=== PATIENT | male | born 1990 | race Caucasian/White ===

== ENCOUNTER → 2017-11-29 | Outpatient (CLI) | payer OTHER ==
[~2017-11-29] MED LIST: Benztropine Mesy1 MG PO; FISH1000 PO; FLUO10 PO; Inderal 20 mg T20 MG PO; L-THEANINE PO; MULVITMIND PO; OLAN10A MM; QVAR REDIHALE10.6 G1 PO; SULTRIDS PO
== END ==
LOC: LAB SHORT 12:26
DX: J03.90 Acute tonsillitis, unspecified (principal)
CPT/HCPCS: 87070

== ENCOUNTER 2018-02-18 12:59 | Emergency (ER) | payer OTHER ==
[~2018-02-18] VITALS: Ht 182.9 cm; Wt 122.0 kg
[~2018-02-18 12:59] MED LIST changes: -Benztropine Mesy1 MG PO; -FLUO10 PO; -QVAR REDIHALE10.6 G1 PO
[2018-02-18] MEDS ORDERED: Benztropine Mesy1 MG PO (14:15)
[2018-02-18] MEDS ORDERED: FLUO10 PO (14:15)
[2018-02-18] MEDS ORDERED: QVAR REDIHALE10.6 G1 PO (14:15)
== END 2018-02-18 14:57 | disposition home or self-care (01) ==
LOC: ER 12:59
DX: R07.89 Other chest pain (principal); Z88.8 Allergy status to other drugs, medicaments and biological substances; Z79.899 Other long term (current) drug therapy; F20.9 Schizophrenia, unspecified
CPT/HCPCS: 93005; 93010; 99283

== ENCOUNTER 2018-03-13 08:51 | Day surgery (SDC) | payer OTHER ==
[~2018-03-13 08:51] MED LIST changes: +Benztropine Mesy1 MG PO; +FLUO10 PO; +QVAR REDIHALE10.6 G1 PO
== END 2018-03-13 23:00 | disposition home or self-care (01) ==
LOC: CT 08:51 → ORD 08:51 → CT 10:00 → ORD 23:00
DX: R07.9 Chest pain, unspecified (principal); R94.39 Abnormal result of other cardiovascular function study; E78.5 Hyperlipidemia, unspecified; Z87.891 Personal history of nicotine dependence; E66.9 Obesity, unspecified; Z82.49 Family history of ischemic heart disease and other diseases of the circulatory system
CPT/HCPCS: 75574; Q9967

== ENCOUNTER → 2018-10-25 | Outpatient (CLI) | payer OTHER ==
[2018-10-29 13:40] LABS: Adenovirus F 40/41 Not Detected (NOT DETECT); Astrovirus Not Detected (NOT DETECT); Campylobacter Sp Not Detected (NOT DETECT); Cryptosporidium Not Detected (NOT DETECT); Cyclospora Cayetanensis Not Detected (NOT DETECT); E. Coli O157 Not Detected (NOT DETECT); Entamoeba Histolytica Not Detected (NOT DETECT); Enteroaggregative E. coli-EAEC Not Detected (NOT DETECT); Enteropathogenic E. coli-EPEC Not Detected (NOT DETECT); Enterotoxigenic E. coli-ETEC Not Detected (NOT DETECT); Giardia Lamblia Not Detected (NOT DETECT); Norovirus GI/GII Not Detected (NOT DETECT); Plesiomonas Shigelloides Not Detected (NOT DETECT); Rotavirus A Not Detected (NOT DETECT); Salmonella Sp Not Detected (NOT DETECT); Sapovirus Not Detected (NOT DETECT); Shiga Toxin-prod E. coli-STEC Not Detected (NOT DETECT); Shigella/Enteroin E. coli-EIEC Not Detected (NOT DETECT); Vibrio Cholerae Not Detected (NOT DETECT); Vibrio Sp Not Detected (NOT DETECT); Yersinia Enterocolitica Not Detected (NOT DETECT)
== END | disposition home or self-care (01) ==
LOC: LAB SHORT 13:15 → LAB 13:15 → LAB FUT 04-28 15:35
PROVIDERS: Internal Medicine Gastroenterology
DX: K92.1 Melena (principal); K59.00 Constipation, unspecified
CPT/HCPCS: 83993; 87507

== ENCOUNTER 2019-09-16 07:40 | Day surgery (SDC) | payer OTHER ==
[~2019-09-16] VITALS: Ht 180.3 cm; Wt 123.9 kg
[~2019-09-16 07:40] MED LIST changes: +Benztropine Me0.5 MG PO; +OLANZAPINE15 MG PO; +Prozac40 MG PO; +QVAR REDIHALE10.6 G1 INH
== END 2019-09-16 11:00 | disposition home or self-care (01) ==
LOC: ORSCSDS 07:40
PROVIDERS: Internal Medicine Gastroenterology
PROC: 0DBM8ZX Excision of Descending Colon, Via Natural or Artificial Opening Endoscopic, Diagnostic (ICD-10-PCS; principal; 2019-09-16 09:30)
DX: K92.1 Melena (principal); D12.4 Benign neoplasm of descending colon; K64.0 First degree hemorrhoids; J45.909 Unspecified asthma, uncomplicated; I10 Essential (primary) hypertension; F20.0 Paranoid schizophrenia; F17.210 Nicotine dependence, cigarettes, uncomplicated; Z79.899 Other long term (current) drug therapy
CPT/HCPCS: 88305; J2250; J2704; J7120

== ENCOUNTER → 2024-07-22 | Outpatient (CLI) | payer OTHER ==
[2024-07-22 13:39] LABS: Source, Urine Voided
[2024-07-22 14:18] LABS: Appearance, Urine Clear (Clear); Bilirubin, Urine Neg (Neg); Blood, Urine Neg (Neg); Color, Urine Yellow (P-Yellow); Glucose Qualitative, Urine Neg (Neg); Ketones, Urine Neg (Neg); Leukocyte Esterase, Urine Neg (Neg); Nitrite, Urine Neg (Neg); Protein, Urine Neg (Neg); Urobilinogen, Urine NORM (Normal)
== END ==
LOC: LAB SHORT 13:35 → LAB 13:35
PROVIDERS: Hospitalist
DX: R31.9 Hematuria, unspecified (principal)
CPT/HCPCS: 81003